=== PATIENT | male | born 1985 | race Caucasian/White ===

== ENCOUNTER 2022-01-12 10:00 | Emergency (ER) | payer SELFPAY ==
[2022-01-12] MEDS ORDERED: IBUPROFEN 400 MG TAB ONE (10:38)
[2022-01-12] MEDS ORDERED: IBUPROFEN 200 MG TAB PO ONE (10:38)
--- NOTE | 2022-01-12 11:33 | RAD REPORT ---
EXAM DESCRIPTION: RAD - Chest Pa And Lat (2 Views) - 01/12/2022 11:25 am CLINICAL HISTORY: PAIN COMPARISON: <Comparisons> FINDINGS: Lines: None. Lungs: No evidence of edema or pneumonia. Pleural: No significant pleural effusions or pneumothorax. Cardiac: The heart size is within normal limits. Mediastinum: Within normal limits. Bones: No acute fractures. Other: None IMPRESSION: No acute cardiopulmonary disease.
--- NOTE | 2022-01-12 11:38 | RAD REPORT ---
EXAM DESCRIPTION: RAD - Ribs Right - 01/12/2022 11:25 am CLINICAL HISTORY: PAIN COMPARISON: No comparisonsNo comparisons FINDINGS/IMPRESSION: No displaced right-sided rib fractures. No pneumothorax. Nondisplaced rib fract ures may not be apparent until healing begins.
--- NOTE | 2022-01-12 11:45 | ER ---
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 Coronavirus screen: Vaccine status: Patient reports being unvaccinated. Client denies travel out of the [place] in the last 14 days. Ebola Screen: Patient negative for fever greater than or equal to 101.5 degrees Fahrenheit, and additional compatible Ebola Virus Disease symptoms Patient denies exposure to infectious person. Patient denies travel to an Ebola-affected area in the 21 days before illness onset. 10:10 Initial Sepsis Screen: Does the patient meet any 2 criteria? No. Patient's initial kb3 sepsis screen is negative. Does the patient have a suspected source of infection? No. Patient's initial sepsis screen is negative. 10:10 Risk Assessment: Do you want to hurt yourself or someone else? Patient reports no kb3 desire to harm self or others. Onset of symptoms was January 11, 2022. 10:10 Acuity: KAYLIN 4 kb3 Triage Assessment: 10:10 General: Appears in no apparent distress. Behavior is calm, cooperative. Pain: kb3 Complains of pain in right lateral anterior chest Pain does not radiate. Pain currently is 10 out of 10 on a pain scale. Historical: - Allergies: 10:34 No Known Allergies; kb3 - Home Meds: 10:34 None [Active]; kb3 - PMHx: 10:34 Seizure; Asthma; kb3 - PSHx: 10:34 None; kb3 - Immunization history:: Adult Immunizations up to date, Client reports having NOT received the Covid vaccine. Last tetanus immunization: unknown. - Social history:: Smoking status: Patient reports the use of cigarette tobacco products, smokes one pack cigarettes per day. Screenin:15 Abuse screen: Denies threats or abuse. Denies injuries from another. Nutritional kb3 screening: No deficits noted. Tuberculosis screening: No symptoms or risk factors identified. Fall Risk None identified. Assessment: 10:15 General: See triage note. kb3 11:57 Reassessment: Patient appears in no apparent distress at this time. No changes from tp1 previously documented assessment. Patient is alert, oriented x 3, equal unlabored respirations, skin warm/dry/pink. Vital Signs: 10:10 BP 137 / 96; Pulse 93; Resp 20; Temp 98; Pulse Ox 99% ; Weight 63.5 kg; Height 5 ft. 9 kb3 in. (175.26 cm); Pain 10/10; 10:10 Body Mass Index 20.67 (63.50 kg, 175.26 cm) kb3 ED Course: 10:04 Patient arrived in ED. as 10:05 Star Cabrera DO is Attending Physician. ms3 10:10 Arm band placed on right wrist. kb3 10:15 Patient has correct armband on for positive identification. kb3 10:15 No provider procedures requiring assistance completed. Patient did not have IV access kb3 during this emergency room visit. 10:22 Ila Hadley, RN is Primary Nurse. kb3 10:34 Triage completed. kb3 11:27 Ribs Right XRAY In Process Unspecified. EDMS 11:27 Chest Pa And Lat (2 Views) XRAY In Process Unspecified. EDMS 11:44 Daniele Lam DO is Referral Physician. ms3 Administered Medications: 10:36 Drug: Ibuprofen 600 mg Route: PO; kb3 11:58 Follow up: Response: Pain is unchanged, physician notified tp1 Medication: 10:15 VIS not applicable for this client. kb3 Outcome: 11:44 Discharge ordered by . ms3 11:58 Discharged to Law Enforcement tp1 11:58 Condition: good 11:58 Discharge instructions given to patient, police, Instructed on discharge instructions, follow up and referral plans. Demonstrated understanding of instructions, follow-up care. 11:58 Patient left the ED. tp1 Signatures: Dispatcher [employer] Deanne Serrano as Star Cabrera DO DO ms3 Sharifa Fong RN RN tp1 Ila Hadley, RN RN kb3 Corrections: (The following items were deleted from the chart) 10:34 10:34 PMHx: None; kb3 kb3 10:35 10:34 General: Appears in no apparent distress. Behavior is calm, cooperative, kb3 kb3 10:35 10:34 Pain: Complains of pain in right lateral anterior chest Pain does not radiate. 3 Pain currently is 10 out of 10 on a pain scale. kb3 10:36 10:34 Immunization history: Adult Immunizations up to date, Client reports having NOT 3 received the Covid vaccine. Last tetanus immunization: unknown, 3 10:36 10:34 Social history: Smoking status: Patient reports the use of cigarette tobacco [facility] products, smokes one pack cigarettes per day. kb3
--- NOTE | 2022-01-12 11:45 | EDPHYS ---
Physician Documentation [facility] Name: Tucker Drew Age: 36 yrs Sex: Male : 1985 Arrival Date: 01/12/2022 Time: 10:04 Bed DIS3 Private MD: ED Physician Star Cabrera HPI: 01/12 10:17 This 36 yrs old Male presents to ER via Unassigned with complaints of Medical ms3 Clearance- right rib pain. 10:17 The patient or guardian reports chest pain that is located primarily in the right ms3 lateral anterior chest. Onset: The symptoms/episode began/occurred yesterday. The pain does not radiate. Associated signs and symptoms: Pertinent negatives: abdominal pain, nausea, shortness of breath, vomiting. The chest pain is described as sharp. Modifying factors: The symptoms are alleviated by nothing. the symptoms are aggravated by breathing. Severity of pain: At its worst the pain was severe in the emergency department the pain is unchanged is a 8 / 10. 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 Historical: - Allergies: 10:34 No Known Allergies; kb3 - Home Meds: 10:34 None [Active]; kb3 - PMHx: 10:34 Seizure; Asthma; kb3 - PSHx: 10:34 None; kb3 - Immunization history:: Adult Immunizations up to date, Client reports having NOT received the Covid vaccine. Last tetanus immunization: unknown. - Social history:: Smoking status: Patient reports the use of cigarette tobacco products, smokes one pack cigarettes per day. ROS: 10:17 Constitutional: Negative for fever, and chills. Neck: Negative for injury, pain, and ms3 swelling, Cardiovascular: Negative for chest pain, and palpitations. Respiratory: Negative for shortness of breath, cough, wheezing, and pleuritic chest pain, Abdomen/GI: Negative for abdominal pain, nausea, vomiting, diarrhea, and constipation, Skin: Negative for injury, rash, and discoloration. 10:17 MS/extremity: Positive for right sided rib pain. Exam: 10:17 Constitutional: This is a well developed, well nourished patient who is awake, alert, ms3 and in no acute distress. Head/Face: Normocephalic, atraumatic. Neck: Trachea midline, no cervical lymphadenopathy. Supple, full range of motion without nuchal rigidity, or vertebral point tenderness. No Meningismus. Cardiovascular: Regular rate and rhythm with a normal S1 and S2. No gallops, murmurs, or rubs. Normal PMI, no JVD. No pulse deficits. Respiratory: Lungs have equal breath sounds bilaterally, clear to auscultation and percussion. No rales, rhonchi or wheezes noted. No increased work of breathing, no retractions or nasal flaring. Abdomen/GI: Soft, non-tender, with normal bowel sounds. No distension or tympany. No guarding or rebound. No evidence of tenderness throughout. Skin: Warm, dry with normal turgor. Normal color with no rashes, no lesions, and no evidence of cellulitis. MS/ Extremity: Pulses equal, no cyanosis. Neurovascular intact. Full, normal range of motion. 10:17 Chest/axilla: Inspection: deformity, is not appreciated, ecchymosis, is not appreciated, flail chest, is not appreciated, paradoxical chest wall movements, are not appreciated, Palpation: tenderness, that is moderate, of the right lateral anterior chest, that totally reproduces the patient's complaints. 10:17 Respiratory: the patient does not display signs of respiratory distress, Respirations: normal, Breath sounds: are clear throughout, no acute changes. Vital Signs: 10:10 BP 137 / 96; Pulse 93; Resp 20; Temp 98; Pulse Ox 99% ; Weight 63.5 kg; Height 5 ft. 9 kb3 in. (175.26 cm); Pain 10/10; 10:10 Body Mass Index 20.67 (63.50 kg, 175.26 cm) kb3 MDM: 10:12 Patient medically screened. ms3 10:20 Differential diagnosis: Blunt Chest Trauma Chest Wall Contusion Chest Wall Injury ms3 Pneumothorax Rib Fracture. 11:45 Data reviewed: vital signs, nurses notes, radiologic studies, and as a result, I will ms3 discharge patient. Counseling: I had a detailed discussion with the patient and/or guardian regarding: the historical points, exam findings, and any diagnostic results supporting the discharge/admit diagnosis, radiology results, the need for outpatient follow up, to return to the emergency department if symptoms worsen or persist or if there are any questions or concerns that arise at home. ED course: Discussed x-ray findings with patient. Patient understands and agrees with plan. All questions were answered. Return precautions discussed include worsening symptoms, or any other concerns. On reevaluation patient is alert and oriented x4, in no apparent distress, nontoxic-appearing, speaking full sentences.. 01/12 10:12 Order name: Ribs Right XRAY; Complete Time: 11:43 ms3 01/12 10:12 Order name: Chest Pa And Lat (2 Views) XRAY; Complete Time: 11:43 ms3 Administered Medications: 10:36 Drug: Ibuprofen 600 mg Route: PO; kb3 11:58 Follow up: Response: Pain is unchanged, physician notified tp1 Disposition Summary: 01/12/22 11:44 Discharge Ordered Location: Home ms3 Condition: Stable ms3 Diagnosis - Right rib pain ms3 - Elevated blood-pressure reading, without diagnosis of hypertension ms3 Followup: ms3 - With: Daniele Lam DO - When: 2 - 3 days - Reason: Recheck today's complaints Discharge Instructions: - Discharge Summary Sheet ms3 - Rib Contusion ms3 Forms: - Medication Reconciliation Form ms3 - Thank You Letter ms3 - Antibiotic Education ms3 - Prescription Opioid Use ms3 Signatures: Dispatcher [employer] EDMS Star Cabrera DO DO ms3 Ila Hadley RN RN kb3 Sharifa Fong RN tp1 Corrections: (The following items were deleted from the chart) 10:34 10:34 PMHx: None; kb3 kb3 10:36 10:34 Immunization history: Adult Immunizations up to date, Client reports having NOT kb3 received the Covid vaccine. Last tetanus immunization: unknown, kb3 10:36 10:34 Social history: Smoking status: Patient reports the use of cigarette tobacco kb3 products, smokes one pack cigarettes per day. kb3
[2022-01-12 12:27] VITALS: BP 137/96; TEMP 98; O2SAT 99
== END 2022-01-12 11:58 | disposition home or self-care (01) ==
LOC: ER 10:00
DX: R07.82 Intercostal pain (principal); R03.0 Elevated blood-pressure reading, without diagnosis of hypertension; F17.210 Nicotine dependence, cigarettes, uncomplicated
CPT/HCPCS: 71046; 99283